=== PATIENT | male | born 1975 | race Hispanic/Latino ===

== ENCOUNTER 2021-05-09 14:52 | Emergency (ER) | payer MEDICARE ==
[~2021-05-09] VITALS: Ht 182.9 cm; Wt 96.2 kg
[2021-05-09] MEDS ORDERED: DOXYCYCLINE HY100 MG PO (15:31)
== END 2021-05-09 18:08 | disposition home or self-care (01) ==
LOC: FSED 14:59
DX: M79.604 Pain in right leg (principal); S80.11XA Contusion of right lower leg, initial encounter; X58.XXXA Exposure to other specified factors, initial encounter; I10 Essential (primary) hypertension; D64.9 Anemia, unspecified; F41.9 Anxiety disorder, unspecified; J45.909 Unspecified asthma, uncomplicated; Z98.84 Bariatric surgery status
CPT/HCPCS: 93971; 99283